=== PATIENT | male | born 1995 | race Caucasian/White ===

== ENCOUNTER 2016-11-25 13:40 | Emergency (ER) | payer OTHER ==
[~2016-11-25] VITALS: Ht 177.8 cm; Wt 72.6 kg
--- NOTE | ~2016-11-25 | CT2 ---
[facility] A Service of [facility] RADIOLOGY TEXT RESULTS PATIENT: REYNOLD PAEZ LOCATION: [facility] : [birth year] UNIT #: [id number] AGE: [address]: Bipin Campbell DO SEX: M ORDER DR: [id number] [facility] [address] [place], [place] [address] [id number] MR#: [id number] Acc #: [id number] NAME: REYNOLD PAEZ. : 1995 SEX: M STUDY DATE/TIME: 11/25/2016 16:27 UNIT: [facility] ROOM: STUDY DESCRIPTION: CT Abd and Pelv W Cont Attending Physician: Bipin Campbell D.O. Ordering Physician: Bipin Campbell D.O. Primary Care Physician: David Cook M.D. MEDICAL IMAGING REPORT This report is preliminary unless electronic signature is present EXAM CT abdomen and pelvis INDICATIONS Left-sided abdominal pain and vomiting for [address] of the abdomen and pelvis with p.o. and IV contrast. Coronal and sagittal reconstructions were obtained. This CT exam was performed with one or more of the following radiation dose reduction techniques: Automatic exposure control, adjustment of mA and/or kV according to patient size, and iterative reconstruction. COMPARISON None available. FINDINGS ABDOMEN: The solid abdominal organs enhance normally. There is appearance of a pancreatic divisum, however there is no evidence of acute or chronic pancreatitis. Gallbladder is nondistended. The bowel is nondilated. Appendix is normal. No enlarged retroperitoneal or mesenteric lymph nodes. PELVIS: No pelvic mass. No enlarged pelvic or inguinal lymph nodes. No acute osseous abnormalities. 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 IMPRESSION 1. No acute findings in the abdomen and pelvis. 2. Incidental note of pancreatic divisum. No evidence of acute or chronic pancreatitis. [facility] A Service of [facility] / [facility] RADIOLOGY TEXT RESULTS PATIENT: REYNOLD PAEZ LOCATION: [facility] : [birth year] UNIT #: [id number] AGE: [address]: Bipin Campbell DO SEX: M ORDER DR: Dictated by... Viraj Ayala M.D. THIS IS AN ELECTRONICALLY VERIFIED REPORT Viraj Ayala M.D. at 11/26/2016 5:44 PM C/ryan TD: 11/26/2016 17:18 JOB #: [id number] MEDICAL IMAGING REPORT Page 1 of 1 COPY
[~2016-11-25 13:40] MED LIST: ADDERALL20 MG PO; ALBUTEROL17 GM INH; ALBUTEROL20 ml INH; DELTASONE20 MG PO; DEPAKOTE250 MG PO; HYDROMET SYRUP480 ML PO; LEVAQUIN750 MG PO
[2016-11-25 14:44] LABS: BASOPHIL% 0.5 % (0-2.5); EOSINOPHIL% 0.2 % (0.0-7.0); HEMATOCRIT 48.4 % (38.0-50.0); HEMOGLOBIN 16.3 gm/dL (13.0-16.0); LYMPHOCYTE# 1.6 X10e3 (1.0-3.5); LYMPHOCYTE% 24.6 % (17.0-45.0); MEAN CELL VOLUME 88.7 FL (83-96); MEAN CORPUSCULAR HEMOGLOBIN 29.8 PG (28-34); MEAN CORPUSCULAR HGB CONC 33.6 g/dL (30-36); MONOCYTE# 0.6 X10e3 (0-1.0); NEUTROPHIL# 4.2 X10e3 (1.5-7.1); NEUTROPHIL% 64.7 % (40-75); PLATELET COUNT 154 X10e3 (140-420); RED BLOOD COUNT 5.45 X10e (3.90-5.60); WHITE BLOOD COUNT 6.4 X10e3 (4.0-10.5)
[2016-11-25 14:58] LABS: BILIRUBIN, DIRECT 0.4 mg/dL (0.0-0.2); BILIRUBIN,INDIRECT 2.6 mg/dL (0.0-0.9); GLOM FILT RATE Estimated 107.9 mL/min (>60); POTASSIUM 4.4 mmol/L (3.5-5.1)
[2016-11-25 15:02] LABS: DIFF IND NO
[2016-11-25 15:58] LABS: URINE SOURCE CLEAN CATCH
[2016-11-25 16:08] LABS: URINE APPEARANCE CLEAR; URINE BLOOD NEG (NEG); URINE COLOR DK YELLOW; URINE GLUCOSE NEG (NEG); URINE KETONE 2+ (NEG); URINE LEUKOCYTE ESTERASE NEG (NEG); URINE NITRATE NEG (NEG); URINE PH 5.5 (5-8); URINE PROTEIN NEG (NEG); URINE SPECIFIC GRAVITY 1.026 (1.003-1.035)
[2016-11-25 16:14] LABS: URINE BILIRUBIN POS (NEG)
[2016-11-25 16:15] LABS: CULTURE INDICATED? NO
[2016-11-25 16:18] LABS: AMPHETAMINE NEG (NEG); BARBITURATES NEG (NEG); BENZODIAZEPINES NEG (NEG); COCAINE NEG (NEG); MARIJUANA POS (NEG); OPIATES POS (NEG); TRICYCLIC ANTIDEPRESSANTS NEG (NEG); U METHADONE NEG (NEG)
== END 2016-11-25 18:57 | disposition home or self-care (01) ==
LOC: CED 13:40 → C5C 17:46 → CED 18:57
PROVIDERS: Emergency Medicine
DX: R10.9 Unspecified abdominal pain (principal); R11.2 Nausea with vomiting, unspecified; R19.7 Diarrhea, unspecified; F31.9 Bipolar disorder, unspecified; F17.200 Nicotine dependence, unspecified, uncomplicated; Z88.8 Allergy status to other drugs, medicaments and biological substances
CPT/HCPCS: 36415; 74177; 80048; 80076; 80307; 81003; 83690; 85025; 96361; 96372; 96374; 96375; 99284; J0500; J2270; J2405; Q9967